=== PATIENT | male | born 1990 | race Hispanic/Latino ===

== ENCOUNTER 2022-12-22 10:32 | Emergency (ER) | payer OTHER | END 2022-12-22 11:42 | disposition home or self-care (01) | LOC: CSHERS 10:32 | DX: M25.561 Pain in right knee (principal); F17.210 Nicotine dependence, cigarettes, uncomplicated | CPT/HCPCS: 99282 ==

== ENCOUNTER 2024-09-20 12:27 | Emergency (ER) | payer OTHER, SELFPAY ==
[2024-09-20 13:06] LABS: #Basophils 0.04 10x3/uL (0.0-0.2); #Eosinophils 0.28 10x3/uL (0.0-0.5); #Monocytes 0.88 10x3/uL (0.0-1.1); #Neutrophils 5.77 10x3/uL (1.5-8.4); %Basophils 0.4 % (0.0-2.0); %Eosinophils 2.7 % (0.0-6.0); %Lymphocytes 33.1 % (18.0-47.0); %Monocytes 8.4 % (0.0-10.0); %Neutrophils 55.1 % (40.0-75.0); Hematocrit 48.1 % (38.8-50.0); Hemoglobin 16.0 g/dL (13.5-17.5); Mean Corpuscular Hemoglobin 28.5 pg (27.0-33.0); Mean Corpuscular Volume 85.6 fL (81.2-95.1); Platelet Count 361 10x3/uL (150-450); Red Blood Cell (RBC) Count 5.62 10x6/uL (4.32-5.72); White Blood Cell (WBC) Count 10.47 10x3/uL (3.5-10.5)
[2024-09-20 13:22] LABS: ALT (SGPT) 59 U/L (Less than 45); AST (SGOT) 34 U/L (11-34); Albumin 4.3 g/dL (3.1-4.5); Alkaline Phosphatase 83 U/L (40-110); Anion Gap 18 mmol/L (10-20); BUN (Urea Nitrogen) 12 mg/dL (8.9-20.6); Bilirubin, Total 0.7 mg/dL (0.3-1.2); Calc. Creatinine Clearance 0 mL/min (70-130); Calcium 9.4 mg/dL (7.8-10.44); Carbon Dioxide 24 mmol/L (22-29); Chloride 103 mmol/L (98-107); Globulin 3.6 g/dL (2.4-3.5); Glucose 179 mg/dL (70-105); Glucose, Urine (Dipstick) Normal (Negative); Leukocyte Negative (Negative); Potassium 3.7 mmol/L (3.5-5.1); Protein, Urine (Dipstick) 30 mg/dl (Neg-Trace); Sodium 141 mmol/L (136-145); Specific Gravity, Urine 1.020 (1.005-1.030)
[2024-09-20] MEDS ORDERED: Ondansetron PF 4 MG/2 ML Vial ONE (13:24)
[2024-09-20 13:47] LABS: RBC/HPF 0-3 HPF (0-3)
[2024-09-20 13:48] LABS: Bacteria/HPF Rare-Few HPF (None Seen); CAUTI Indications for Culture Pelvic or flank pain; Mucous/LPF 2+ LPF (<2+); Urine Culture Reflex No No; WBC/HPF 0-3 HPF (0-3)
[2024-09-20] MEDS ORDERED: Ketorolac Tromethamine 30 MG (1 mL) VIAL ONE (13:52)
== END 2024-09-20 15:07 | disposition home or self-care (01) ==
LOC: CSHERS 12:27
DX: N13.2 Hydronephrosis with renal and ureteral calculous obstruction (principal); F17.210 Nicotine dependence, cigarettes, uncomplicated; Z79.84 Long term (current) use of oral hypoglycemic drugs
CPT/HCPCS: 74176; 80053; 81001; 85025; 96374; 96375; J1885; J2270; J2405